=== PATIENT | male | born 1955 | race Caucasian/White ===

== ENCOUNTER 2018-09-28 09:53 | Inpatient (IN) | payer OTHER ==
--- NOTE | 2018-09-28 10:06 | ED ---
General Adult HPI <Pedro Pablo Lugo - Last Filed: 09/28/18 12:22> - General Source: patient, RN notes reviewed Mode of arrival: ambulatory <Mik Herbert - Last Filed: 09/28/18 20:19> - General Chief complaint: Abdominal Pain Stated complaint: abdominal pain Time Seen by Provider: 09/28/18 10:05 - History of Present Illness Initial comments: 63-year-old male with a past medical history of hypertension, COPD presents to the emergency department for a chief complaint of lower abdominal pain. Patient states that this pain started yesterday. States it is all in his right lower quadrant. Patient states he has been nauseous and vomited approximately 7 times since yesterday. States that he is not able to keep down food. He states he has not had a bowel movement for the past 2 days. Denies fevers or chills. Denies history of appendectomy. States he did have an open cholecystectomy 20 years ago but this was his only abdominal surgery. Denies dysuria.Patient has no other complaints at this time including shortness of breath, chest pain, headache, or visual changes. (Mik Herbert) - Related Data Home Medications Medication Instructions Recorded Confirmed Ibuprofen [Motrin Ib] 800 mg PO Q6H PRN 09/28/18 09/28/18 Levothyroxine Sodium [Synthroid] 75 mcg PO DAILY 09/28/18 09/28/18 Lisinopril [Zestril] 20 mg PO DAILY 09/28/18 09/28/18 Loratadine 10 mg PO DAILY 09/28/18 09/28/18 Terbinafine [LamISIL] 250 mg PO DAILY 09/28/18 09/28/18 Allergies Allergy/AdvReac Type Severity Reaction Status Date / Time Penicillins Allergy Anaphylaxis Verified 09/28/18 10:09 Review of Systems ROS Other: All systems not noted in ROS Statement are negative. <Pedro Pablo Lugo - Last Filed: 09/28/18 12:22> ROS Other: All systems not noted in ROS Statement are negative. <Mik Herbert - Last Filed: 09/28/18 20:19> ROS Statement: Those systems with pertinent positive or pertinent negative responses have been documented in the HPI. Past Medical History Past Medical History: COPD, Hypertension History of Any Multi-Drug Resistant Organisms: None Reported Past Surgical History: Cholecystectomy Past Psychological History: No Psychological Hx Reported Smoking Status: Former smoker Past Alcohol Use History: Rare Past Drug Use History: None Reported <Mik Herbert - Last Filed: 09/28/18 20:19> General Exam General appearance: alert, in no apparent distress Head exam: Present: atraumatic, normocephalic, normal inspection Eye exam: Present: normal appearance, PERRL, EOMI. Absent: scleral icterus, conjunctival injection, periorbital swelling ENT exam: Present: normal exam, mucous membranes moist Neck exam: Present: normal inspection, full ROM. Absent: tenderness, meningismus, lymphadenopathy Respiratory exam: Present: normal lung sounds bilaterally. Absent: respiratory distress, wheezes, rales, rhonchi, stridor Cardiovascular Exam: Present: regular rate, normal rhythm, normal heart sounds. Absent: systolic murmur, diastolic murmur, rubs, gallop, clicks GI/Abdominal exam: Present: soft, tenderness (Tenderness noted in the right lower quadrant and suprapubic area. There is significant tenderness in the left lower quadrant or upper abdomen. No guarding noted, no rebound tenderness.), normal bowel sounds. Absent: distended, guarding, rebound, rigid Neurological exam: Present: alert, oriented X3, CN II-XII intact Psychiatric exam: Present: normal affect, normal mood <Mik Herbert - Last Filed: 09/28/18 20:19> Course <Pedro Pablo Lugo - Last Filed: 09/28/18 12:22> Vital Signs 09/28/18 09/28/18 09/28/18 09:55 11:00 11:30 Temperature 98.2 F Pulse Rate 118 H Respiratory 22 Rate Blood Pressure 127/81 129/78 110/69 O2 Sat by Pulse 96 Oximetry 09/28/18 09/28/18 09/28/18 12:30 13:00 14:03 Temperature 99.1 F Pulse Rate 94 Respiratory 18 Rate Blood Pressure 109/69 113/74 119/70 O2 Sat by Pulse 95 Oximetry - Reevaluation(s) Reevaluation #1: 09/28/18 12:22 Patient does meet sepsis criteria diagnosed at 12:22 PM. Blood culture and lactic acid have been ordered. Fluid bolus and IV antibiotics will be ordered. (Pedro Pablo Lugo) Medical Decision Making - Lab Data Result diagrams: 09/28/18 10:30 09/28/18 10:30 <Pedro Pablo Lugo - Last Filed: 09/28/18 12:22> - Lab Data Result diagrams: 09/28/18 10:30 09/28/18 10:30 <Mik Herbert - Last Filed: 09/28/18 20:19> - Medical Decision Making Patient reexamined and reevaluated by myself, Dr. Lugo. I do agree with the findings. This includes diagnostic interpretation and treatment plan. Case was also discussed with Dr. Sidhu, who will admit covering for surgical call. He does request antibiotics and fluid bolus. (Pedro Pablo Lugo) 63-year-old male with a past medical history of hypertension, COPD presents to the emergency department for chief clamp lower abdominal pain 2 days. States this is of the right lower quadrant. Has vomited approximately 7 times .CBC does show a white count of 17.6 with a left shift with a lactic acid at 2.6, patient given 30 mL/kg of fluids. Patient also started on Flagyl and Levaquin as he is penicillin ALLERGIC and cannot have Unasyn or Zosyn. Urine does not show any significant evidence of infection. CT abdomen and pelvis did show an inflammatory change in the right lower quadrant with appendix distended and with a thickened wall. Likely at appendicolith, no evidence of bowel obstruction. Case was discussed with Dr. Sidhu by Dr. Lugo. Will admit for surgery tomorrow morning (Mik Herbert) - Lab Data Lab Results 09/28/18 09/28/18 09/28/18 Range/Units 10:30 10:30 10:30 WBC 17.6 H (3.8-10.6) k/uL RBC 4.70 (4.30-5.90) m/uL Hgb 14.3 (13.0-17.5) gm/dL Hct 41.7 (39.0-53.0) % MCV 88.7 (80.0-100.0) fL MCH 30.4 (25.0-35.0) pg MCHC 34.3 (31.0-37.0) g/dL RDW 13.5 (11.5-15.5) % Plt Count 250 (150-450) k/uL Neutrophils % 89 % Lymphocytes % 4 % Monocytes % 5 % Eosinophils % 1 % Basophils % 0 % Neutrophils # 15.6 H (1.3-7.7) k/uL Lymphocytes # 0.8 L (1.0-4.8) k/uL Monocytes # 0.9 (0-1.0) k/uL Eosinophils # 0.2 (0-0.7) k/uL Basophils # 0.0 (0-0.2) k/uL Sodium 137 (137-145) mmol/L Potassium 3.3 L (3.5-5.1) mmol/L Chloride 103 (98-107) mmol/L Carbon Dioxide 25 (22-30) mmol/L Anion Gap 9 mmol/L BUN 15 (9-20) mg/dL Creatinine 0.72 (0.66-1.25) mg/dL Est GFR (CKD-EPI)AfAm >90 (>60 ml/min/1.73 sqM) Est GFR (CKD-EPI)NonAf >90 (>60 ml/min/1.73 sqM) Glucose 152 H (74-99) mg/dL Lactic Ac Sepsis Rflx Plasma Lactic Acid Jules 2.6 H* (0.7-2.0) mmol/L Calcium 9.3 (8.4-10.2) mg/dL Total Bilirubin 1.3 (0.2-1.3) mg/dL AST 19 (17-59) U/L ALT 23 (21-72) U/L Alkaline Phosphatase 89 (38-126) U/L Total Protein 6.5 (6.3-8.2) g/dL Albumin 3.9 (3.5-5.0) g/dL Amylase 34 (30-110) U/L Lipase 70 (23-300) U/L / Range/Units 11:34 WBC (3.8-10.6) k/uL RBC (4.30-5.90) m/uL Hgb (13.0-17.5) gm/dL Hct (39.0-53.0) % MCV (80.0-100.0) fL MCH (25.0-35.0) pg MCHC (31.0-37.0) g/dL RDW (11.5-15.5) % Plt Count (150-450) k/uL Neutrophils % % Lymphocytes % % Monocytes % % Eosinophils % % Basophils % % Neutrophils # (1.3-7.7) k/uL Lymphocytes # (1.0-4.8) k/uL Monocytes # (0-1.0) k/uL Eosinophils # (0-0.7) k/uL Basophils # (0-0.2) k/uL Sodium (137-145) mmol/L Potassium (3.5-5.1) mmol/L Chloride (98-107) mmol/L Carbon Dioxide (22-30) mmol/L Anion Gap mmol/L BUN (9-20) mg/dL Creatinine (0.66-1.25) mg/dL Est GFR (CKD-EPI)AfAm (>60 ml/min/1.73 sqM) Est GFR (CKD-EPI)NonAf (>60 ml/min/1.73 sqM) Glucose (74-99) mg/dL Lactic Ac Sepsis Rflx Y Plasma Lactic Acid Jules (0.7-2.0) mmol/L Calcium (8.4-10.2) mg/dL Total Bilirubin (0.2-1.3) mg/dL AST (17-59) U/L ALT (21-72) U/L Alkaline Phosphatase (38-126) U/L Total Protein (6.3-8.2) g/dL Albumin (3.5-5.0) g/dL Amylase (30-110) U/L Lipase (23-300) U/L Disposition <Pedro Pablo Lugo - Last Filed: 09/28/18 12:22> Is patient prescribed a controlled substance at d/c from ED?: No Time of Disposition: 12:26 <Mik Herbert - Last Filed: 09/28/18 20:19> Clinical Impression: Acute appendicitis, Leukocytosis, Hypokalemia Disposition: ADMITTED IP TO THIS HOSP Condition: Fair
[2018-09-28] MEDS ORDERED: MORPHINE SULFATE 4 MG/ML SYRINGE IV STA (10:25)
[2018-09-28] MEDS ORDERED: SODIUM CHLORIDE 0.9% 1,000 ML IV STA ×2 (10:25→11:07)
[2018-09-28] MEDS ORDERED: ONDANSETRON 4 MG/2 ML VIAL IVP STA (10:25)
[2018-09-28 10:50] LABS: Basophils % (A) 0 %; Eosinophils # (A) 0.2 k/uL (0-0.7); Eosinophils % (A) 1 %; HCT 41.7 % (39.0-53.0); HGB 14.3 gm/dL (13.0-17.5); Lymphocytes # (A) 0.8 k/uL (1.0-4.8); Lymphocytes % (A) 4 %; MCH 30.4 pg (25.0-35.0); MCHC 34.3 g/dL (31.0-37.0); MCV 88.7 fL (80.0-100.0); Mean Platelet Volume 7.2; Monocytes # (A) 0.9 k/uL (0-1.0); Monocytes % (A) 5 %; Neutrophils # (A) 15.6 k/uL (1.3-7.7); Neutrophils % (A) 89 %; Platelet Count 250 k/uL (150-450); RDW 13.5 % (11.5-15.5); WBC 17.6 k/uL (3.8-10.6)
[2018-09-28 10:59] LABS: ALT 23 U/L (21-72); AST 19 U/L (17-59); Albumin 3.9 g/dL (3.5-5.0); Alkaline Phosphatase 89 U/L (38-126); Amylase 34 U/L (30-110); Anion Gap 9 mmol/L; Blood Urea Nitrogen 15 mg/dL (9-20); Calcium 9.3 mg/dL (8.4-10.2); Carbon Dioxide 25 mmol/L (22-30); Chloride 103 mmol/L (98-107); Glucose 152 mg/dL (74-99); Lipase 70 U/L (23-300); Potassium 3.3 mmol/L (3.5-5.1); Sodium 137 mmol/L (137-145); Total Bilirubin 1.3 mg/dL (0.2-1.3); Total Protein 6.5 g/dL (6.3-8.2)
[2018-09-28] MEDS ORDERED: SODIUM CHLORIDE 0.9% 500 ML 500 ML IV STA (11:36)
--- NOTE | 2018-09-28 11:57 | CT ---
EXAMINATION TYPE: CT abdomen pelvis w con DATE OF EXAM: 09/28/2018 COMPARISON: None HISTORY: RLQ pain CT DLP: 1519.4 mGycm Automated exposure control for dose reduction was used. TECHNIQUE: Helical acquisition of images from the lung bases through the pelvis have been completed. CONTRAST: Performed without Oral Contrast and with IV Contrast, patient injected with 100 mL of Isovue 300. FINDINGS: LUNG BASES: Basilar atelectatic changes are present, no pleural or pericardial effusion. AORTA: No significant abnormality is appreciated. LIVER/GB: The liver is enlarged and shows low attenuation compatible with hepatic steatosis, gallblad magnolia is absent. Within the left lobe of the liver there is a hypodense focus measuring 1 cm which stat istically is likely represent cyst. PANCREAS: No significant abnormality is seen. SPLEEN: No significant abnormality is seen. ADRENALS: No significant abnormality is seen. KIDNEYS: Low dense foci within the left kidney likely represent cysts largest of which measures appro ximately 2.3 cm. REPRODUCTIVE ORGANS: Prostate shows associated calcifications. BOWEL: There is inflammatory change in the right lower quadrant. The appendix is distended and shows a thickened wall. There is likely an appendicolith present the distal aspect of the appendix, focal h ypoattenuation. Fluid-filled loops of present of small and large bowel, no evident bowel obstruction. Inflammatory changes also present adjacent to the distal ileum, small amount of fluid present in the mesentery. Diverticular changes associated with the sigmoid colon. FREE AIR: No Free Air visible. ASCITES: None visible. PELVIC ADENOPATHY: None visualized. RETROPERITONEAL ADENOPATHY: No Retroperitoneal Adenopathy visible. URINARY BLADDER: No significant abnormality is seen. OSSEOUS STRUCTURES: No significant abnormality is seen. IMPRESSION: FINDINGS OF ACUTE APPENDICITIS DESCRIBED. Additional findings above.
[2018-09-28] MEDS ORDERED: metroNIDAZOLE-NS PMX 500 MG in SALINE 1 100ML.BAG IVPB STA (12:21)
[2018-09-28] MEDS ORDERED: LEVOFLOXACIN 750MG-D5W PMX 750 MG in DEXTROSE/WATER 1 150ML.BAG IVPB STA (12:22)
[2018-09-28] MEDS ORDERED: NALOXONE 0.4 MG/ML 1 ML VIAL IV PRN (12:24)
[2018-09-28] MEDS ORDERED: POTASSIUM CHLORIDE 10 MEQ in WATER FOR INJECTION 1 100ML.BAG IVPB STA (12:24)
[2018-09-28] MEDS: SODIUM CHLORIDE 0.9% 1,000 ML IV SCH ×2 (12:45→21:08)
[2018-09-28 13:13] LABS: Appearance,Urine Clear (Clear); Bilirubin,Urine Negative (Negative); Blood,Urine Negative (Negative); Color,Urine Yellow; Glucose,Urine (UA) Negative (Negative); Ketones,Urine Negative (Negative); Leukocyte Esterase,Urine Small (Negative); Mucus,Urine Rare /hpf; Nitrite,Urine Negative (Negative); Protein,Urine Trace (Negative); RBC,Urine 4 /hpf (0-5); Specific Gravity,Urine >1.050 (1.001-1.035); Squamous Epithelial Cell,Urine 2 /hpf (0-4); Urobilinogen,Urine <2.0 mg/dL (<2.0); WBC,Urine 11 /hpf (0-5)
--- NOTE | 2018-09-28 14:44 | P.GSHP ---
History of Present Illness H&P Date: 09/28/18 Chief Complaint: abdominal pain CHIEF COMPLAINT: Abdominal pain HISTORY OF PRESENT ILLNESS: 63-year-old male who presents to emergency room with a chief complaint of abdominal pain. Patient reports pain is localized to right lower quadrant. He reports episodes of nausea and vomiting yesterday. Decreased oral intake over last 24 hours. Denies diarrhea or constipation. WBC 17.6 on admission. Lactic acid 2.6. PAST MEDICAL HISTORY: See list. PAST SURGICAL HISTORY: See list. SOCIAL HISTORY: No illicit drug use. REVIEW OF SYSTEMS: CONSTITUTIONAL: Denies fever or chills. HEENT: Denies blurred vision, vision changes, or eye pain. Denies hemoptysis CARDIOVASCULAR: Denies chest pain or pressure. RESPIRATORY: No shortness of breath. GASTROINTESTINAL: Refer to [facility] for pertinent findings HEMATOLOGIC: Denies bleeding disorders. GENITOURINARY: Denies any blood in urine. SKIN: Denies pruitis. Denies rash. PHYSICAL EXAM: VITAL SIGNS: Reviewed. GENERAL: Well-developed in no acute distress. HEENT: No sclera icterus. Extraocular movements grossly intact. Moist buccal mucosa. Head is atraumatic, normocephalic. ABDOMEN: Soft. Nondistended. Tenderness to right lower quadrant upon palpation. NEUROLOGIC: Alert and oriented. Cranial nerves II through XII grossly intact. IMAGING: CT abdomen and pelvis: Inflammatory changes right lower quadrant. Appendix is distended and shows thickened wall. There is likely an appendicolith present the distal aspect of the appendix, focal hypoattenuation. Fluid-filled loops of small and large bowel. No evident bowel obstruction. Inflammatory changes also present adjacent to the distal ileum. small amount of fluid present in the mesentery. ASSESSMENT: 1. Abdominal pain 2. Acute appendicitis 3. Sepsis, present on admission, secondary to above PLAN: 1. Continue antibiotics. Monitor WBC 2. NPO 3. Patient to undergo laparoscopic appendectomy tomorrow with Dr. Sidhu Nurse practitioner note has been reviewed by physician. Signing provider agrees with the documented findings, assessment, and plan of care. Past Medical History Past Medical History: COPD, Hypertension History of Any Multi-Drug Resistant Organisms: None Reported Past Surgical History: Cholecystectomy Past Psychological History: No Psychological Hx Reported Smoking Status: Former smoker Past Alcohol Use History: Rare Past Drug Use History: None Reported Medications and Allergies Home Medications Medication Instructions Recorded Confirmed Type Ibuprofen [Motrin Ib] 800 mg PO Q6H PRN 09/28/18 09/28/18 History Levothyroxine Sodium [Synthroid] 75 mcg PO DAILY 09/28/18 09/28/18 History Lisinopril [Zestril] 20 mg PO DAILY 09/28/18 09/28/18 History Loratadine 10 mg PO DAILY 09/28/18 09/28/18 History Terbinafine [LamISIL] 250 mg PO DAILY 09/28/18 09/28/18 History Allergies Allergy/AdvReac Type Severity Reaction Status Date / Time Penicillins Allergy Anaphylaxis Verified 09/28/18 10:09 Surgical - Exam Vital Signs Temp Pulse Resp BP Pulse Ox 98.2 F 118 H 22 127/81 96 09/28/18 09:55 09/28/18 09:55 09/28/18 09:55 09/28/18 09:55 09/28/18 09:55 Results - Labs 09/28/18 10:30 09/28/18 10:30 Abnormal Lab Results - Last 24 Hours (Table) 09/28/18 09/28/18 09/28/18 Range/Units 10:30 10:30 10:30 WBC 17.6 H (3.8-10.6) k/uL Neutrophils # 15.6 H (1.3-7.7) k/uL Lymphocytes # 0.8 L (1.0-4.8) k/uL Potassium 3.3 L (3.5-5.1) mmol/L Glucose 152 H (74-99) mg/dL Plasma Lactic Acid Jules 2.6 H* (0.7-2.0) mmol/L Ur Specific [place] (1.001-1.035) Urine Protein (Negative) Ur Leukocyte Esterase (Negative) Urine WBC (0-5) /hpf Urine Mucus (None) /hpf 09/28/18 Range/Units 12:58 WBC (3.8-10.6) k/uL Neutrophils # (1.3-7.7) k/uL Lymphocytes # (1.0-4.8) k/uL Potassium (3.5-5.1) mmol/L Glucose (74-99) mg/dL Plasma Lactic Acid Jules (0.7-2.0) mmol/L Ur Specific [place] >1.050 H (1.001-1.035) Urine Protein Trace H (Negative) Ur Leukocyte Esterase Small H (Negative) Urine WBC 11 H (0-5) /hpf Urine Mucus Rare H (None) /hpf Diabetes panel 09/28/18 Range/Units 10:30 Sodium 137 (137-145) mmol/L Potassium 3.3 L (3.5-5.1) mmol/L Chloride 103 (98-107) mmol/L Carbon Dioxide 25 (22-30) mmol/L BUN 15 (9-20) mg/dL Creatinine 0.72 (0.66-1.25) mg/dL Glucose 152 H (74-99) mg/dL Calcium 9.3 (8.4-10.2) mg/dL AST 19 (17-59) U/L ALT 23 (21-72) U/L Alkaline Phosphatase 89 (38-126) U/L Total Protein 6.5 (6.3-8.2) g/dL Albumin 3.9 (3.5-5.0) g/dL Calcium panel 09/28/18 Range/Units 10:30 Calcium 9.3 (8.4-10.2) mg/dL Albumin 3.9 (3.5-5.0) g/dL Pituitary panel 09/28/18 Range/Units 10:30 Sodium 137 (137-145) mmol/L Potassium 3.3 L (3.5-5.1) mmol/L Chloride 103 (98-107) mmol/L Carbon Dioxide 25 (22-30) mmol/L BUN 15 (9-20) mg/dL Creatinine 0.72 (0.66-1.25) mg/dL Glucose 152 H (74-99) mg/dL Calcium 9.3 (8.4-10.2) mg/dL Adrenal panel 09/28/18 Range/Units 10:30 Sodium 137 (137-145) mmol/L Potassium 3.3 L (3.5-5.1) mmol/L Chloride 103 (98-107) mmol/L Carbon Dioxide 25 (22-30) mmol/L BUN 15 (9-20) mg/dL Creatinine 0.72 (0.66-1.25) mg/dL Glucose 152 H (74-99) mg/dL Calcium 9.3 (8.4-10.2) mg/dL Total Bilirubin 1.3 (0.2-1.3) mg/dL AST 19 (17-59) U/L ALT 23 (21-72) U/L Alkaline Phosphatase 89 (38-126) U/L Total Protein 6.5 (6.3-8.2) g/dL Albumin 3.9 (3.5-5.0) g/dL
[2018-09-28] MEDS: HYDROmorphone 1 MG/ML 1 ML SYRINGE IVP PRN (14:51)
[2018-09-28] MEDS ORDERED: fentaNYL (PF) 50 MCG/ML 2 ML AMP IV PRN (16:02)
[2018-09-28] MEDS ORDERED: MIDAZOLAM 2 MG/2 ML VIAL IV PRN (16:02)
[2018-09-28] MEDS ORDERED: DEXAMETHASONE SOD PHOSPHATE 10 MG/ML 1 ML VIAL IV ONE (16:02)
[2018-09-28] MEDS: HEPARIN SODIUM,PORCINE 5,000 UNIT/ML 1 ML VIAL SQ SCH (16:25)
[2018-09-28] MEDS: metroNIDAZOLE-NS PMX 500 MG in SALINE 1 100ML.BAG IVPB SCH (18:15)
[2018-09-28] MEDS ORDERED: SODIUM CHLORIDE 0.9% 1,000 ML IV ONE (21:28)
[2018-09-28] MEDS: ACETAMINOPHEN TAB 325 MG TAB PO PRN (21:40)
[2018-09-28] MEDS: LACTATED RINGERS 1,000 ML IV SCH (21:41)
[2018-09-29] MEDS: HEPARIN SODIUM,PORCINE 5,000 UNIT/ML 1 ML VIAL SQ SCH ×3 (00:07→16:37)
[2018-09-29] MEDS: ONDANSETRON 4 MG/2 ML VIAL IVP PRN ×2 (00:07→06:47)
[2018-09-29] MEDS: metroNIDAZOLE-NS PMX 500 MG in SALINE 1 100ML.BAG IVPB SCH ×4 (00:07→22:20)
[2018-09-29] MEDS: LACTATED RINGERS 1,000 ML IV SCH ×4 (00:08→16:38)
[2018-09-29] MEDS: HYDROmorphone 1 MG/ML 1 ML SYRINGE IVP PRN ×2 (00:17→04:57)
[2018-09-29] MEDS: SODIUM CHLORIDE 0.9% 1,000 ML IV SCH ×4 (03:59→22:19)
[2018-09-29] MEDS ORDERED: IV FLUID CONTINUATION 225 ML IV ONE (06:38)
[2018-09-29] MEDS ORDERED: SCOPOLAMINE 1.5MG/72HR PATCH TRANSDERM ONE (06:47)
[2018-09-29] MEDS ORDERED: ROCURONIUM BROMIDE 10 MG/ML 10 ML VIAL IV ONE (07:01)
[2018-09-29] MEDS ORDERED: NEOSTIGMINE 1 MG/ML 10 ML VIAL ONE (07:01)
[2018-09-29] MEDS ORDERED: GLYCOPYRROLATE 0.2 MG/ML 2 ML VIAL ONE (07:01)
[2018-09-29] MEDS ORDERED: SUCCINYLCHOLINE CHLORIDE 100 MG/5 ML SYR IV ONE (07:01)
[2018-09-29] MEDS ORDERED: PROPOFOL 10 MG/ML 20 ML VIAL IV ONE (07:01)
[2018-09-29] MEDS ORDERED: LIDOCAINE 1% INJ 10MG/ML (20 ML MDV) ONE (07:01)
[2018-09-29] MEDS: LEVOFLOXACIN 750MG-D5W PMX 750 MG in DEXTROSE/WATER 1 150ML.BAG IVPB SCH (07:09)
[2018-09-29] MEDS ORDERED: BUPIVACAIN-EPI 0.5%-1:200,000 30 ML VIAL SQ ONE ×2 (07:31)
[2018-09-29] MEDS ORDERED: LACTATED RINGERS 1,000 ML IV ONE (07:37)
--- NOTE | 2018-09-29 08:29 | P.OP ---
Date of Procedure: 09/29/18 Preoperative Diagnosis: Acute appendicitis Postoperative Diagnosis: Acute appendicitis with abscess Procedure(s) Performed: Laparoscopic appendectomy Anesthesia: NOBLE Surgeon: Delfino Sidhu Estimated Blood Loss (ml): 10 Pathology: other (Appendix) Condition: stable Disposition: PACU Description of Procedure: The patient's placed on the operating table in the supine position. The patient received general anesthesia. The abdomen was prepped and draped in the usual sterile fashion. The skin was anesthetized 1% local Xylocaine at the trocar sites. Using an 11 blade the skin was incised at the umbilicus. The umbilicus was grasped with a [place] clamp and then a Veress needle was placed into the peritoneal cavity. Position of the Veress needle was confirmed with positive drop test. After adequate insufflation a 5 mm trocar was placed into the peritoneal cavity. The abdomen was further insufflated. And then the laparoscope was placed in the peritoneal cavity. Next a 5 mm trocar was placed in the midline suprapubic position. And then a 10 mm trocar was placed in the midline left lateral position. The patient was rotated with the right side up and in Trendelenburg. The appendix was visualized. The appendix appeared to be inflamed. There was some patchy necrosis on the appendix. There appeared to be a periappendiceal abscess. The abscess cavity was aspirated. The appendix was grasped and then using the Harmonic scissors the mesoappendix was divided. A PDS Endoloop was then placed around the base of the appendix. And then the appendix was divided using Harmonic scissors. The appendix was placed into an Endo Catch and brought out through the 10 mm trocar site. The abdomen was irrigated. There is no bleeding seen. A SADAF drain is placed along the right colon next to the area of the abscess. The trochars withdrawn. The skin was closed interrupted 3-0 Monocryl suture. Dermabond dressing was applied. Patient was sent to recovery room in stable condition.
[2018-09-29] MEDS ORDERED: KETOROLAC 30 MG/ML 1 ML VIAL IVP ONE (08:42)
[2018-09-29] MEDS ORDERED: SODIUM CHLORIDE 0.9% 500 ML 500 ML IV ONE (09:38)
[2018-09-29] MEDS: LISINOPRIL 20 MG TAB PO SCH (10:18)
[2018-09-29] MEDS: PANTOPRAZOLE 40 MG/10 ML VIAL IVP SCH (10:18)
[2018-09-29] MEDS: LEVOTHYROXINE 75 MCG TAB PO SCH (10:18)
[2018-09-29] MEDS: METOCLOPRAMIDE 5 MG/ML 2 ML VIAL IVP PRN (10:27)
[2018-09-29 10:37] LABS: Basophils % (A) 0 %; Eosinophils # (A) 0.1 k/uL (0-0.7); Eosinophils % (A) 1 %; HCT 35.5 % (39.0-53.0); HGB 12.3 gm/dL (13.0-17.5); Lymphocytes # (A) 0.6 k/uL (1.0-4.8); Lymphocytes % (A) 4 %; MCH 31.7 pg (25.0-35.0); MCHC 34.7 g/dL (31.0-37.0); MCV 91.2 fL (80.0-100.0); Mean Platelet Volume 6.8; Monocytes # (A) 0.6 k/uL (0-1.0); Monocytes % (A) 5 %; Neutrophils # (A) 11.8 k/uL (1.3-7.7); Neutrophils % (A) 89 %; Platelet Count 180 k/uL (150-450); RBC 3.89 m/uL (4.30-5.90); RDW 13.1 % (11.5-15.5); WBC 13.2 k/uL (3.8-10.6)
[2018-09-29 10:45] LABS: Anion Gap 4 mmol/L; Blood Urea Nitrogen 13 mg/dL (9-20); Calcium 8.1 mg/dL (8.4-10.2); Carbon Dioxide 25 mmol/L (22-30); Chloride 108 mmol/L (98-107); Glucose 136 mg/dL (74-99); Sodium 137 mmol/L (137-145)
[2018-09-29] MEDS: ACETAMINOPHEN TAB 325 MG TAB PO PRN ×2 (14:17→22:39)
[2018-09-29] MEDS: MORPHINE SULFATE 2 MG/ML SYRINGE IVP PRN (22:31)
[2018-09-30] MEDS: HEPARIN SODIUM,PORCINE 5,000 UNIT/ML 1 ML VIAL SQ SCH ×4 (00:27→22:55)
[2018-09-30] MEDS: SODIUM CHLORIDE 0.9% 1,000 ML IV SCH ×4 (05:55→22:55)
[2018-09-30] MEDS: LEVOTHYROXINE 75 MCG TAB PO SCH (05:55)
--- NOTE | 2018-09-30 07:03 | CONS ---
CONSULTATION DATE OF SERVICE: 09/29/2018 REASON FOR CONSULTATION: Advice regarding COPD and hypertension requested by Dr. Sidhu. HISTORY OF PRESENT ILLNESS: This 63-year-old gentleman with a past medical history of COPD, hypertension, history of cholecystectomy being followed by Dr. Medina in the outpatient setting was complaining of abdominal pain. The patient came to [facility] and CT scan of the abdomen showed features of acute appendicitis and the patient underwent laparoscopic appendectomy for acute appendicitis and abscess by Dr. Sidhu. The patient was closely monitored at this time. The patient was on broad-spectrum IV antibiotics. There is no history of any fever, rigors. No history of headache, loss of consciousness, seizures. PAST MEDICAL HISTORY: History of COPD, hypertension, history of cholecystectomy, history of nicotine dependence. MEDICATIONS: Medications are: 1. Lamisil 250 mg p.o. daily. 2. Motrin 800 mg q.6 p.r.n. 3. Loratadine 10 mg p.o. daily. 4. Zestril 20 mg p.o. daily. 5. Synthroid 75 mcg p.o. daily. ALLERGIES: Allergies are PENICILLIN. FAMILY HISTORY: No history of heart disease or strokes in the family. SOCIAL HISTORY: Previous history of smoking. Occasional alcohol intake. REVIEW OF SYSTEMS: ENT: No diminished hearing or diminished vision. CARDIOVASCULAR SYSTEM: No angina or palpitations. RESPIRATORY SYSTEM: As mentioned earlier. GI: As mentioned earlier. : No dysuria. NERVOUS SYSTEM: No numbness or weakness. ALLERGY/IMMUNOLOGY: No history of asthma or hayfever. MUSCULOSKELETAL: As mentioned earlier. HEMATOLOGY/ONCOLOGY: No history of anemia. ENDOCRINE: Hypothyroidism. CONSTITUTIONAL: As mentioned earlier. DERMATOLOGY: Negative. RHEUMATOLOGY: Negative. PSYCHIATRY: As mentioned earlier. PHYSICAL EXAMINATION: The patient is alert and oriented x3. Pulse is 83, blood pressure 106/71, respirations 16, temperature 97.9, pulse ox 97% on room air. HEENT: Conjunctivae normal. Oral mucosa moist. NECK: No jugular venous distention. No carotid bruit. No lymph node enlargement. CARDIOVASCULAR: S1, S2 muffled. RESPIRATORY: Breath sounds diminished at the bases. No rhonchi, no crackles. ABDOMEN: Soft, status post laparoscopic appendectomy. present. LEGS: No edema, no swelling. NERVOUS SYSTEM: Higher function as mentioned. Moves all 4 limbs. No focal deficits. LYMPHATICS: No lymphadenopathy of the neck, axillae or groin. SKIN: No ulcer, rash or bleeding. JOINTS: No active deforming arthropathy. LABS: WBC 17.6. Sodium 137, potassium 3.3. Plasma lactic acid 2.6. UA noted. ASSESSMENT: 1. Acute appendicitis with periappendiceal abscess with sepsis, status post laparoscopic appendectomy. 2. Elevated lactic acid. 3. Hypokalemia. 4. Increased WBC. 5. Chronic obstructive pulmonary disease. 6. Hypertension. 7. History of cholecystectomy. 8. Remote history of nicotine dependence. 9. FULL CODE. RECOMMENDATIONS AND DISCUSSION: This 63-year-old gentleman who presented with multiple medical issues, at this time I would recommend to continue current medications, continue symptomatic treatment. Patient has allergy to PENICILLIN. I would recommend broad-spectrum IV antibiotics. Obtain cultures. Repeat labs. Otherwise, DVT prophylaxis. Resume the home medications. We will follow the patient closely with you and the patient may be asked to follow up with primary physician closely after discharge. Thank you Dr. Sidhu for letting us participate in the care of this patient. MMODL / IJN: [id number] / MTDD
[2018-09-30] MEDS: MORPHINE SULFATE 2 MG/ML SYRINGE IVP PRN ×2 (08:10→21:29)
[2018-09-30] MEDS: metroNIDAZOLE-NS PMX 500 MG in SALINE 1 100ML.BAG IVPB SCH ×3 (08:12→20:15)
[2018-09-30] MEDS: PANTOPRAZOLE 40 MG/10 ML VIAL IVP SCH (08:12)
[2018-09-30] MEDS: LISINOPRIL 20 MG TAB PO SCH (08:12)
[2018-09-30] MEDS: LEVOFLOXACIN 750MG-D5W PMX 750 MG in DEXTROSE/WATER 1 150ML.BAG IVPB SCH (11:59)
--- NOTE | 2018-09-30 12:17 | P.PN ---
Subjective Progress Note Date: 09/30/18 CHIEF COMPLAINT: Abdominal pain HISTORY OF PRESENT ILLNESS: 63-year-old male who underwent laparoscopic appendectomy secondary to acute appendicitis with abscess formation. POD #1. Patient seen and examined this morning the bedside. Patient reports abdominal p ain this morning. Patient also reports continued nausea. CBC from this morning is pending. Patient febrile overnight with a tmax of 101.8. Afebrile this morning. PHYSICAL EXAM: VITAL SIGNS: Reviewed. GENERAL: Well-developed in no acute distress. HEENT: No sclera icterus. Extraocular movements grossly intact. Moist buccal mucosa. Head is atraumatic, normocephalic. ABDOMEN: Soft. Nondistended. Appropriate surgical tenderness. SADAF drain to right lower quadrant with serosanguineous drainage. NEUROLOGIC: Alert and oriented. Cranial nerves II through XII grossly intact. ASSESSMENT: 1. Abdominal pain 2. Acute appendicitis 3. Sepsis, present on admission, secondary to above PLAN: 1. Continue antibiotics. Monitor WBC 2. Clear liquids as tolerated. Do not advance diet today due to nausea 3. Continue Zofran and Reglan PRN 4. Pain control. Continue IV narotics PRN. Nurse practitioner note has been reviewed by physician. Signing provider agrees with the documented findings, assessment, and plan of care. Objective - Vital Signs Vital signs: Vital Signs Temp 98.8 F 09/30/18 05:00 Pulse 89 09/30/18 05:00 Resp 20 09/30/18 08:00 BP 113/75 09/30/18 05:00 Pulse Ox 97 09/30/18 05:00 Intake & Output 09/29/18 09/30/18 09/30/18 18:59 06:59 18:59 Intake Total 1250 100 Output Total 365 70 65 Balance 885 30 -65 Intake: IV 850 Oral 400 100 Output: Drainage 55 70 65 Anterior Abdomen 55 70 65 Urine 300 Estimated Blood Loss 10 Other: # Voids 2 - Labs CBC & Chem 7: 09/29/18 10:14 09/29/18 10:14 Labs: Microbiology - Last 24 Hours (Table) 09/29/18 14:10 Urine Culture - Preliminary Urine,Clean Catch 09/28/18 12:24 Blood Culture - Preliminary Blood No Growth after 24 hours
[2018-09-30 13:06] LABS: Basophils % (A) 0 %; Eosinophils # (A) 0.1 k/uL (0-0.7); Eosinophils % (A) 1 %; HGB 11.7 gm/dL (13.0-17.5); Lymphocytes # (A) 0.9 k/uL (1.0-4.8); Lymphocytes % (A) 9 %; MCH 31.2 pg (25.0-35.0); MCHC 34.4 g/dL (31.0-37.0); MCV 90.6 fL (80.0-100.0); Mean Platelet Volume 7.3; Monocytes # (A) 0.5 k/uL (0-1.0); Monocytes % (A) 5 %; Neutrophils # (A) 8.8 k/uL (1.3-7.7); Neutrophils % (A) 85 %; Platelet Count 213 k/uL (150-450); RBC 3.75 m/uL (4.30-5.90); RDW 12.6 % (11.5-15.5); WBC 10.4 k/uL (3.8-10.6)
[2018-09-30] MEDS: ACETAMINOPHEN TAB 325 MG TAB PO PRN (14:45)
[2018-10-01] MEDS: ACETAMINOPHEN TAB 325 MG TAB PO PRN ×2 (00:05→16:29)
[2018-10-01] MEDS: LEVOTHYROXINE 75 MCG TAB PO SCH (05:14)
[2018-10-01] MEDS: SODIUM CHLORIDE 0.9% 1,000 ML IV SCH ×3 (05:15→21:42)
[2018-10-01] MEDS: MORPHINE SULFATE 2 MG/ML SYRINGE IVP PRN ×2 (07:39→22:55)
[2018-10-01] MEDS: metroNIDAZOLE-NS PMX 500 MG in SALINE 1 100ML.BAG IVPB SCH ×3 (07:41→21:42)
[2018-10-01] MEDS: HEPARIN SODIUM,PORCINE 5,000 UNIT/ML 1 ML VIAL SQ SCH ×2 (09:12→16:29)
[2018-10-01] MEDS: PANTOPRAZOLE 40 MG/10 ML VIAL IVP SCH (09:12)
[2018-10-01] MEDS: LISINOPRIL 20 MG TAB PO SCH (09:13)
--- NOTE | 2018-10-01 11:09 | P.PN ---
Progress Note - Text Progress Note Date: 10/01/18 Postoperative day 2 Patient is resting comfortably in his bed. He has some mild complaints of pain nausea. His abdomen is distended. He states he feels slightly better. On exam vital signs are stable. His abdomen is soft. Incision sites are clean dry tach. The abdomen is mildly distended. Status post laparoscopic appendectomy for acute purulent appendicitis. Patient remained on IV antibiotic. Patient has an ileus. He will remain on sips of clear liquids.
[2018-10-01 12:18] VITALS: BMI 31.1
[2018-10-01] MEDS: LEVOFLOXACIN 750MG-D5W PMX 750 MG in DEXTROSE/WATER 1 150ML.BAG IVPB SCH (12:45)
[2018-10-01] MEDS: ONDANSETRON 4 MG/2 ML VIAL IVP PRN (14:55)
--- NOTE | 2018-10-01 17:47 | P.PN ---
Subjective 63-year-old is admitted to surgical service status for acute purulent appendicitispost appendectomypretty he was septic initially on admission.he had ileus. He is on IV antibiotics. Hospitalist service consulted for medical management. On 10/01/2018 Patient still complaining of pain which is crampy. He had a bowel movement today. He still having fevers. Objective - Vital Signs Vital signs: Vital Signs Temp 100.5 F H 10/01/18 14:11 Pulse 88 10/01/18 14:11 Resp 16 10/01/18 16:00 BP 138/88 10/01/18 14:11 Pulse Ox 96 10/01/18 14:11 Intake & Output 09/30/18 10/01/18 10/01/18 18:59 06:59 18:59 Intake Total 400 Output Total 115 170 260 Balance -115 230 -260 Weight 104.326 kg Intake: Oral 400 Output: Drainage 115 170 260 Anterior Abdomen 115 170 260 Other: Voiding Method Urinal Urinal # Voids 4 1 - Exam On exam, alert and oriented x3. HEENT: Conjunctivae normal. eyes normal. NECK: No JVD. No thyroid enlargement. No LNs CARDIOVASCULAR: S1, S2 muffled. No murmur RESPIRATION: Breath sounds diminished in the bases. No rhonchi or crackles. No bronchial breathing. ABDOMEN: status post lumbar scopic appendectomy. Patient has bojorquez secondary to the above procedure LEGS: No edema. no swelling NERVOUS SYSTEM: Cranial N 2-12 grossly normal. Moves all 4 limbs. No focal deficits. No sensory deficit. No signs of cerebellar dysfucntion. - Labs CBC & Chem 7: 09/30/18 10:30 09/29/18 10:14 Labs: Microbiology - Last 24 Hours (Table) 09/28/18 12:24 Blood Culture - Preliminary Blood No Growth after 72 hours 09/29/18 14:10 Urine Culture - Final Urine,Clean Catch Assessment and Plan Assessment: - status post appendectomy for acute purulent appendicitis with periappendiceal abscess - Sepsis present on admission - COPD - Hypertension - History of nicotine dependence Plan - patient is on Levaquin and Flagyl. - Patient is still having fevers and is complaining of increased pain. I would recommend infectious disease consult for better antibiotic recommendations - Continue pain control as per surgery service - Continue advancement of fluid as per surgery service - We'll follow up on the patient Time with Patient: Greater than 30
[2018-10-02] MEDS: HEPARIN SODIUM,PORCINE 5,000 UNIT/ML 1 ML VIAL SQ SCH ×4 (00:11→23:41)
[2018-10-02] MEDS: SODIUM CHLORIDE 0.9% 1,000 ML IV SCH ×4 (04:31→23:41)
[2018-10-02] MEDS: LEVOTHYROXINE 75 MCG TAB PO SCH (06:19)
[2018-10-02 07:55] LABS: HCT 32.4 % (39.0-53.0); HGB 11.3 gm/dL (13.0-17.5); MCH 30.9 pg (25.0-35.0); MCHC 34.8 g/dL (31.0-37.0); MCV 88.7 fL (80.0-100.0); Mean Platelet Volume 6.7; Platelet Count 261 k/uL (150-450); RBC 3.65 m/uL (4.30-5.90); RDW 12.5 % (11.5-15.5); WBC 9.5 k/uL (3.8-10.6)
[2018-10-02 08:10] LABS: Anion Gap 4 mmol/L; Blood Urea Nitrogen 7 mg/dL (9-20); Calcium 8.1 mg/dL (8.4-10.2); Carbon Dioxide 30 mmol/L (22-30); Chloride 106 mmol/L (98-107); Glucose 106 mg/dL (74-99); Potassium 2.9 mmol/L (3.5-5.1); Sodium 140 mmol/L (137-145)
[2018-10-02] MEDS ORDERED: Potassium Replacement Protocol 1 EACH MISC MISCELLANE PRN (09:22)
[2018-10-02] MEDS: PANTOPRAZOLE 40 MG/10 ML VIAL IVP SCH (09:33)
[2018-10-02] MEDS: LISINOPRIL 20 MG TAB PO SCH (09:34)
[2018-10-02] MEDS: metroNIDAZOLE-NS PMX 500 MG in SALINE 1 100ML.BAG IVPB SCH ×3 (09:34→22:01)
[2018-10-02] MEDS: ONDANSETRON 4 MG/2 ML VIAL IVP PRN ×2 (09:34→17:46)
--- NOTE | 2018-10-02 11:26 | P.PN ---
Progress Note - Text Progress Note Date: 10/02/18 The patient feels better. He had several large bowel movements last night. On exam his vital signs are stable. His abdomen soft. Patient will have his diet advanced. It is for discharge home the next 24-48 hours.
[2018-10-02] MEDS: LEVOFLOXACIN 750MG-D5W PMX 750 MG in DEXTROSE/WATER 1 150ML.BAG IVPB SCH (11:38)
[2018-10-02] MEDS: POTASSIUM CHLORIDE ER 20 MEQ TAB.ER PO SCH ×3 (11:38→14:05)
[2018-10-02] MEDS: METOCLOPRAMIDE 5 MG/ML 2 ML VIAL IVP PRN (14:04)
--- NOTE | 2018-10-02 14:19 | P.PN ---
Subjective 63-year-old is admitted to surgical service status for acute purulent appendicitispost appendectomypretty he was septic initially on admission.he had ileus. He is on IV antibiotics. Hospitalist service consulted for medical management. On 10/01/2018 Patient still complaining of pain which is crampy. He had a bowel movement today. He still having fevers. 10/02/2018 said that is feeling better today is a little nauseous He had a large bowel movement last night and this morning She's tolerating feeding Objective - Vital Signs Vital signs: Vital Signs Temp 98.6 F 10/02/18 05:05 Pulse 83 10/02/18 05:05 Resp 16 10/02/18 05:05 BP 121/78 10/02/18 05:05 Pulse Ox 97 10/02/18 05:05 Intake & Output 10/01/18 10/02/18 10/02/18 18:59 06:59 18:59 Output Total 370 180 60 Balance -370 -180 -60 Weight 104.326 kg Output: Drainage 370 180 60 Anterior Abdomen 370 180 60 Other: Voiding Method Urinal Toilet # Voids 3 # Bowel Movements 2 - Exam On exam, alert and oriented x3. HEENT: Conjunctivae normal. eyes normal. NECK: No JVD. No thyroid enlargement. No LNs CARDIOVASCULAR: S1, S2 muffled. No murmur RESPIRATION: Breath sounds diminished in the bases. No rhonchi or crackles. No bronchial breathing. ABDOMEN: status post lumbar scopic appendectomy. Patient has bojorquez secondary to the above procedure LEGS: No edema. no swelling NERVOUS SYSTEM: Cranial N 2-12 grossly normal. Moves all 4 limbs. No focal deficits. No sensory deficit. No signs of cerebellar dysfucntion. - Labs CBC & Chem 7: 10/02/18 07:15 10/02/18 07:15 Labs: Abnormal Lab Results - Last 24 Hours (Table) 10/02/18 10/02/18 Range/Units 07:15 07:15 RBC 3.65 L (4.30-5.90) m/uL Hgb 11.3 L (13.0-17.5) gm/dL Hct 32.4 L (39.0-53.0) % Potassium 2.9 L (3.5-5.1) mmol/L BUN 7 L (9-20) mg/dL Creatinine 0.58 L (0.66-1.25) mg/dL Glucose 106 H (74-99) mg/dL Calcium 8.1 L (8.4-10.2) mg/dL Microbiology - Last 24 Hours (Table) 09/28/18 12:24 Blood Culture - Preliminary Blood No Growth after 72 hours Assessment and Plan Assessment: - status post appendectomy for acute purulent appendicitis with periappendiceal abscess - Sepsis present on admission - COPD - Hypertension - History of nicotine dependence Plan - patient is on Levaquin and Flagyl. - Patient is still having fevers and is complaining of increased pain. I would recommend infectious disease consult for better antibiotic recommendations - Continue pain control as per surgery service - Continue advancement of fluid as per surgery service - We'll follow up on the patient 10/02/2018 - Patient has no fevers - Continue antibiotics per primary service team - Patient has no active medical issues right now - Patient can be discharged when appropriate with the primary team Time with Patient: Less than 30
[2018-10-03] MEDS: SODIUM CHLORIDE 0.9% 1,000 ML IV SCH ×2 (05:59→13:39)
[2018-10-03] MEDS: LEVOTHYROXINE 75 MCG TAB PO SCH (05:59)
[2018-10-03] MEDS: LISINOPRIL 20 MG TAB PO SCH (08:59)
[2018-10-03] MEDS: metroNIDAZOLE-NS PMX 500 MG in SALINE 1 100ML.BAG IVPB SCH (08:59)
[2018-10-03] MEDS: PANTOPRAZOLE 40 MG/10 ML VIAL IVP SCH (08:59)
[2018-10-03] MEDS: HEPARIN SODIUM,PORCINE 5,000 UNIT/ML 1 ML VIAL SQ SCH (09:00)
--- NOTE | 2018-10-03 10:06 | P.DS ---
Providers Date of admission: 09/28/18 12:23 Expected date of discharge: 10/03/18 Attending physician: Delfino Sidhu Consults: 09/29/18 14:02 Consult Physician Routine Consulting Provider: Mckenzie Brown Consult Reason/Comments: med manage Do you want consulting provider notified?: Yes Primary care physician: Keaton Medina [facility] Course: This is a 63-year-old male who underwent laparoscopic appendectomy for acute appendicitis with abscess. Please see hospital chart for details. Procedures: Laparoscopic appendectomy Patient Condition at Discharge: Good Plan - Discharge Summary Discharge Rx Participant: No New Discharge Prescriptions: New Levofloxacin [Levaquin] 500 mg PO DAILY #7 tab No Action Terbinafine [LamISIL] 250 mg PO DAILY Loratadine 10 mg PO DAILY Lisinopril [Zestril] 20 mg PO DAILY Levothyroxine Sodium [Synthroid] 75 mcg PO DAILY Ibuprofen [Motrin Ib] 800 mg PO Q6H PRN PRN Reason: Pain Discharge Medication List Ibuprofen [Motrin Ib] 800 mg PO Q6H PRN 09/28/18 [History] Levothyroxine Sodium [Synthroid] 75 mcg PO DAILY 09/28/18 [History] Lisinopril [Zestril] 20 mg PO DAILY 09/28/18 [History] Loratadine 10 mg PO DAILY 09/28/18 [History] Terbinafine [LamISIL] 250 mg PO DAILY 09/28/18 [History] Levofloxacin [Levaquin] 500 mg PO DAILY #7 tab 10/03/18 [Rx] Follow up Appointment(s)/Referral(s): Keaton Medina III, MD [Primary Care Provider] - 1-2 days Delfino Sidhu MD [STAFF PHYSICIAN] - 1 Week
--- NOTE | 2018-10-03 12:08 | P.PN ---
Subjective 63-year-old is admitted to surgical service status for acute purulent appendicitispost appendectomypretty he was septic initially on admission.he had ileus. He is on IV antibiotics. Hospitalist service consulted for medical management. On 10/01/2018 Patient still complaining of pain which is crampy. He had a bowel movement today. He still having fevers. 10/02/2018 said that is feeling better today is a little nauseous He had a large bowel movement last night and this morning She's tolerating feeding 10/03/2018 Feeling better today Went for a walk Still having some pain but better than before Tolerating diet Objective - Vital Signs Vital signs: Vital Signs Temp 99.5 F 10/03/18 05:21 Pulse 77 10/03/18 05:21 Resp 14 10/03/18 05:21 BP 137/83 10/03/18 05:21 Pulse Ox 93 L 10/03/18 05:21 Intake & Output 10/02/18 10/03/18 10/03/18 18:59 06:59 18:59 Intake Total 750 1200 540 Output Total 120 50 70 Balance 630 1150 470 Intake: Intake, IV Titration 1200 Amount Sodium Chloride 0.9% 1, 1200 000 ml @ 150 mls/hr IV . Q6H40M [facility] Rx#:[id number] Oral 750 540 Output: Drainage 120 50 70 Anterior Abdomen 120 50 70 Other: Voiding Method Toilet # Voids 2 1 # Bowel Movements 2 - Exam On exam, alert and oriented x3. HEENT: Conjunctivae normal. eyes normal. NECK: No JVD. No thyroid enlargement. No LNs CARDIOVASCULAR: S1, S2 muffled. No murmur RESPIRATION: Breath sounds diminished in the bases. No rhonchi or crackles. No bronchial breathing. ABDOMEN: status post lumbar scopic appendectomy. Patient has bojorquez secondary to the above procedure LEGS: No edema. no swelling NERVOUS SYSTEM: Cranial N 2-12 grossly normal. Moves all 4 limbs. No focal deficits. No sensory deficit. No signs of cerebellar dysfucntion. - Labs CBC & Chem 7: 10/02/18 07:15 10/02/18 07:15 Labs: Microbiology - Last 24 Hours (Table) 09/28/18 12:24 Blood Culture - Preliminary Blood No Growth after 96 hours Assessment and Plan Assessment: - status post appendectomy for acute purulent appendicitis with periappendiceal abscess - Sepsis present on admission - COPD - Hypertension - History of nicotine dependence Plan - patient is on Levaquin and Flagyl. - Patient is still having fevers and is complaining of increased pain. I would recommend infectious disease consult for better antibiotic recommendations - Continue pain control as per surgery service - Continue advancement of fluid as per surgery service - We'll follow up on the patient 10/02/2018 - Patient has no fevers - Continue antibiotics per primary service team - Patient has no active medical issues right now - Patient can be discharged when appropriate with the primary team 10/03/2018 - Patient to be discharged as per primary team - We'll add Flagyl to his antibiotic regimen along with Levaquin - Continue rest of the medical care - Follow up with the primary care in 1 week - Follow with surgery on the date put in in the discharge summary Time with Patient: Less than 30
[2018-10-03] MEDS: LEVOFLOXACIN 750MG-D5W PMX 750 MG in DEXTROSE/WATER 1 150ML.BAG IVPB SCH (13:38)
[2018-10-03 14:21] VITALS: BP 139/84; PULSE 76; RESP 16; TEMP 98
== END 2018-10-03 14:30 | disposition home or self-care (01) | DRG 853 ==
LOC: EC 09:53 → 4MS4W 12:23 → OBSVTOIN 12:23 → 4MS4W 13:47
PROVIDERS: ADMIT Surgery; ATTEND Surgery
PROC: 0DTJ4ZZ Resection of Appendix, Percutaneous Endoscopic Approach (ICD-10-PCS; principal; 2018-09-29 07:30)
DX: A41.9 Sepsis, unspecified organism (principal); K35.33 Acute appendicitis with perforation, localized peritonitis, and gangrene, with abscess; K56.7 Ileus, unspecified; E87.6 Hypokalemia; I10 Essential (primary) hypertension; J44.9 Chronic obstructive pulmonary disease, unspecified; Z79.890 Hormone replacement therapy; Z79.899 Other long term (current) drug therapy; Z87.891 Personal history of nicotine dependence; Z88.0 Allergy status to penicillin; Z90.49 Acquired absence of other specified parts of digestive tract; Z79.1 Long term (current) use of non-steroidal anti-inflammatories (NSAID); E03.9 Hypothyroidism, unspecified
CPT/HCPCS: 36415; 74177; 80048; 80053; 81001; 82150; 83605; 83690; 85025; 85027; 87040; 87086; 88304; 96361; 96365; 96368; 96375; 99285

== ENCOUNTER → 2019-04-15 | Outpatient (CLI) | payer OTHER ==
--- NOTE | 2019-04-15 17:56 | XR ---
EXAMINATION TYPE: XR chest 2V DATE OF EXAM: 04/15/2019 COMPARISON: 09/18/2016 TECHNIQUE: PA and lateral views submitted. HISTORY: Cough FINDINGS: The lungs are clear and there is no pneumothorax, pleural effusion, or focal pneumonia. No overt fa ilure. Heart size stable. IMPRESSION: 1. No acute process.
== END | disposition home or self-care (01) ==
LOC: RADXRMAIN 16:18
PROVIDERS: ATTEND Family Medicine
DX: R05 Cough (principal); R06.2 Wheezing
CPT/HCPCS: 71046

== ENCOUNTER → 2019-04-15 | Outpatient (CLI) | payer OTHER ==
[2019-04-15 15:15] LABS: Basophils % (A) 0 %; Eosinophils # (A) 0.5 k/uL (0-0.7); Eosinophils % (A) 6 %; HCT 42.5 % (39.0-53.0); HGB 14.5 gm/dL (13.0-17.5); Lymphocytes % (A) 25 %; MCH 31.1 pg (25.0-35.0); MCHC 34.1 g/dL (31.0-37.0); MCV 91.2 fL (80.0-100.0); Mean Platelet Volume 6.6; Monocytes # (A) 0.4 k/uL (0-1.0); Monocytes % (A) 5 %; Neutrophils # (A) 4.8 k/uL (1.3-7.7); Neutrophils % (A) 62 %; Platelet Count 286 k/uL (150-450); RBC 4.66 m/uL (4.30-5.90); RDW 12.4 % (11.5-15.5); WBC 7.8 k/uL (3.8-10.6)
[2019-04-15 18:32] LABS: ALT 38 U/L (10-49); AST 24 U/L (14-35); Albumin/Globulin Ratio 2.44 (1.60-3.17); Alkaline Phosphatase 105 U/L (41-126); BUN/Creat Ratio 21.25 Ratio (12.00-20.00); C Reactive Protein <0.4 mg/dL (0.0-0.8); Calcium 9.5 mg/dL (8.7-10.3); Carbon Dioxide 30.1 mmol/L (21.6-31.8); Chloride 104 mmol/L (96-109); Creatine Kinase 118 U/L (35-257); Globulin 1.8 g/dL (1.6-3.3); Glucose 116 mg/dL (70-110); Non-African American GFR(CKD) 95.7 (60.0-200.0); Potassium 4.1 mmol/L (3.5-5.5); Sodium 141 mmol/L (135-145); Total Bilirubin 0.4 mg/dL (0.3-1.2); Total Protein 6.2 g/dL (6.2-8.2)
[2019-04-15 19:24] LABS: Erythrocyte Sedimentation Rate 3 mm/hr (0-15)
== END | disposition home or self-care (01) ==
LOC: LABWHC1 14:25
PROVIDERS: ATTEND Family Medicine
DX: M79.18 Myalgia, other site (principal); E89.0 Postprocedural hypothyroidism
CPT/HCPCS: 36415; 80053; 82550; 84439; 84443; 85025; 85652; 86140

== ENCOUNTER → 2019-05-02 | Outpatient (CLI) | payer OTHER ==
--- NOTE | 2019-05-02 10:35 | CT ---
EXAMINATION TYPE: CT soft tissue neck wo/w con DATE OF EXAM: 05/02/2019 COMPARISON: None HISTORY: Right sided neck swelling CT DLP: 1166.5 mGycm CONTRAST: CT scan of the neck is performed without and with IV Contrast, patient injected with 100 mL of Isovue 300. Contrast enhanced CT of the neck was performed from the skull base through the lung apices. AIRWAY: The supraglottic, glottic, and subglottic portions of the airway appear patent and free of mass. SALIVARY GLANDS: The submandibular and parotid glands are free of mass or inflammatory process. THYROID GLAND: Predominantly cystic left thyroid nodule measuring 4.9 x 3.5 x 3.9 cm. No additional m asses seen of the thyroid gland. Peripheral calcifications noted. Consider ultrasound correlation. LYMPH NODES: No adenopathy seen greater than 1cm. LUNG APICES: No nodule or mass is seen. OTHER: Vascular structures are patent. No significant degenerative change of the cervical spine. N o abscess seen. IMPRESSION: Anomaly cystic left thyroid nodule as noted above. Otherwise unremarkable study.
== END | disposition home or self-care (01) ==
LOC: RADCTMAIN 07:10
PROVIDERS: ATTEND Family Medicine
DX: E04.1 Nontoxic single thyroid nodule (principal)
CPT/HCPCS: 70492; Q9967

== ENCOUNTER 2019-07-22 09:27 | Day surgery (SDC) | payer OTHER ==
[2019-07-22 10:11] VITALS: RESP 14; TEMP 98.1
--- NOTE | 2019-07-22 11:18 | US ---
ULTRASOUND GUIDED FNA THYROID BIOPSY: CLINICAL HISTORY: Request for right and left thyroid FNA FINDINGS: The procedure was explained to the patient. The risks, complications, benefits and alternatives were discussed and any questions were answered. Informed consent was obtained. Patient was placed supin e on the ultrasound table and prepped and draped in the usual sterile fashion. Utilizing a 25 gauge needle, five passes were made into the the 2 requested nodules. Patient was stable throughout the procedure. Pathology is pending. All elements of maximal barrier technique were utilized. IMPRESSION: 1. Successful ultrasound guided FNA thyroid biopsy.
[2019-07-22 11:34] VITALS: BP 141/88; PULSE 76
== END 2019-07-22 11:22 | disposition home or self-care (01) ==
LOC: RADPROMAIN 09:27
PROVIDERS: ATTEND Otolaryngology Plastic Surgery within the Head & Neck
DX: D34 Benign neoplasm of thyroid gland (principal)
CPT/HCPCS: 10005; 88173; 88305

== ENCOUNTER → 2022-01-03 | Outpatient (CLI) | payer OTHER ==
--- NOTE | 2022-01-04 04:13 | MR ---
EXAMINATION TYPE: MR lumbar spine wo con DATE OF EXAM: 01/03/2022 COMPARISON: None HISTORY: Low back pain Multiplanar multiecho imaging of the lumbar spine with no contrast. The lumbar vertebrae have normal alignment. There is disc space narrowing throughout the lumbar spine and more at L4-5 and L5-S1. There is posterior small disc herniations from L1 to L4. Lumbar nerve ro ots appear intact. No evidence of any significant spinal stenosis. There is some lateral recess steno sis due to facet arthropathy at L2-3 and L3-4. No significant neural foraminal narrowing. The posteri or elements are intact. No lumbar paraspinal mass. Sacroiliac joints are intact. There is mild increa sed signal on the STIR images on both sides of the L3-4 disc. No evidence of any increased disc fluid . IMPRESSION: Multilevel lumbar spondylotic changes and multiple small posterior disc herniations from L1 to L4. No fracture. No significant spinal stenosis. There are some reactive signal changes on both sides of th e L3-4 disc that could be stress related phenomenon and edema.
== END | disposition home or self-care (01) ==
LOC: RADMRIMAIN 21:15
PROVIDERS: ATTEND Family Medicine
DX: M51.16 Intervertebral disc disorders with radiculopathy, lumbar region (principal); M47.26 Other spondylosis with radiculopathy, lumbar region
CPT/HCPCS: 72148

== ENCOUNTER → 2022-05-02 | Outpatient (CLI) | payer MEDICARE ==
--- NOTE | 2022-05-02 08:49 | CT ---
EXAMINATION TYPE: CT sinus wo con DATE OF EXAM: 05/02/2022 COMPARISON: None HISTORY: Chronic sinusitis and facial pain. CT DLP: 648.[address] of the paranasal sinuses was performed in the axial and coronal planes. Bone and soft tissue settings are submitted. The paranasal sinuses demonstrate normal aeration and development. Moderate circumferential mucosal thickening of the bilateral maxillary sinuses with bilateral ostiome atal unit obstruction. There is some moderate opacification of the ethmoid air cells and mild to mode rate opacification of the frontal sinus. Mild mucosal thickening left sphenoid sinus. The nasal septu m is midline. No bony destructive changes are seen within the field of view. IMPRESSION: Chronic pansinusitis.
== END | disposition home or self-care (01) ==
LOC: RADCTMAIN 08:18
PROVIDERS: ATTEND Otolaryngology
DX: J32.4 Chronic pansinusitis (principal)
CPT/HCPCS: 70486

== ENCOUNTER → 2023-02-12 | Outpatient (CLI) | payer MEDICARE ==
--- NOTE | 2023-02-13 08:46 | US ---
EXAMINATION TYPE: US thyroid st tissue head/neck DATE OF EXAM: 02/12/2023 COMPARISON: NONE CLINICAL INDICATION: Male, 68 years old with history of E05.90 THYROTOXICOSIS, UNSP WITHOUT THYROTOXI C CRI; thy nodule GLAND SIZE: Right Lobe: 4.0 x 1.6 x 2.5 cm Overall Parenchyma: homogenous Left Lobe: 5.3 x 3.0 x 2.1 cm Overall Parenchyma: heterogenous Isthmus Thickness: .2 cm NODULES RIGHT: # of nodules measured on right: 1 1. 2.4 X 1.5 x 1.9 cm, mid , solid or almost completely solid, hypoechoic nodule, which is wider t leary tall, with smooth margins, without echogenic foci. Prior size: No previous us. TR4 Moderately Suspicious: FNA if ? 1.5 cm; Follow if ? 1 cm at 1, 2, 3, and 5 y LEFT: # of nodules measured on left: 1 1. 3.8 X 1.9 x 2.4 cm, mid , solid or almost completely solid, hypoechoic nodule, which is wider th an tall, with smooth margins, with echogenic foci. Prior size: No previous us. TR4 Moderately Suspicious: FNA if ? 1.5 cm; Follow if ? 1 cm at 1, 2, 3, and 5 y ISTHMUS: # of nodules measured in the isthmus: 0 Bilateral neck scanned, no evidence of lymphadenopathy. IMPRESSION: TR4 nodules bilaterally for which tissue diagnosis is recommended.
== END | disposition home or self-care (01) ==
LOC: RADUSWWP 16:52
PROVIDERS: ATTEND Internal Medicine Endocrinology, Diabetes & Metabolism
DX: E05.90 Thyrotoxicosis, unspecified without thyrotoxic crisis or storm (principal); E04.2 Nontoxic multinodular goiter
CPT/HCPCS: 76536

== ENCOUNTER → 2023-02-17 | Outpatient (CLI) | payer MEDICARE ==
[2023-02-17 15:11] LABS: Basophils # (A) 0.05 X 10*3/uL (0.00-0.10); Basophils % (A) 0.8 %; Eosinophils # (A) 0.42 X 10*3/uL (0.04-0.35); Eosinophils % (A) 6.4 %; HCT 43.4 % (39.6-50.0); HGB 15.4 d/dL (13.0-17.0); Lymphocytes # (A) 1.66 X 10*3/uL (0.90-5.00); Lymphocytes % (A) 25.2 %; MCH 31.8 pg (27.0-32.0); MCHC 35.5 d/dL (32.0-37.0); MCV 89.5 FL (80.0-97.0); Mean Platelet Volume 10.1 FL (9.5-12.2); Monocytes # (A) 0.48 X 10*3/uL (0.20-1.00); Monocytes % (A) 7.3 %; NRBC Per 100 WBC 0 X 10*3/uL (0.00-0.01); Neutrophils # (A) 3.95 X 10*3/uL (1.80-7.70); Platelet Count 252 X 10*3/uL (140-440); RBC 4.85 X 10*6/uL (4.40-5.60); RDW 12.2 % (11.5-14.5); WBC 6.58 X 10*3/uL (4.50-10.00)
[2023-02-17 16:06] LABS: Chol/HDL Ratio 3.81 Ratio; LDL Cholesterol,Calculated 92.8 mg/dL (0.0-131.0); VLDL Calculation 17.84 mg/dL (5.00-40.00)
[2023-02-17 16:07] LABS: ALT 50 U/L (10-49); AST 26 U/L (14-35); Albumin 4.5 d/dL (3.8-4.9); Albumin/Globulin Ratio 2.25 Ratio (1.60-3.17); Alkaline Phosphatase 108 U/L (41-126); BUN/Creat Ratio 16.18 Ratio (12.00-20.00); Blood Urea Nitrogen 17.8 mg/dL (9.0-27.0); Calcium 9.5 mg/dL (8.7-10.3); Carbon Dioxide 27.2 mmol/L (21.6-31.8); Chloride 105 mmol/L (96-109); Glucose 121 mg/dL (70-110); Potassium 4.7 mmol/L (3.5-5.5); Sodium 143 mmol/L (135-145); T4, Free (Free Thyroxine) 1.24 ng/dL (0.80-1.80); Total Bilirubin 0.6 mg/dL (0.3-1.2); Total Protein 6.5 d/dL (6.2-8.2)
[2023-02-17 16:13] LABS: PSA Annual Screen 0.736 ng/mL (0.000-4.000)
== END | disposition home or self-care (01) ==
LOC: LABWHC1 10:07
PROVIDERS: ATTEND Student in an Organized Health Care Education/Training Program
DX: Z12.5 Encounter for screening for malignant neoplasm of prostate (principal); E05.90 Thyrotoxicosis, unspecified without thyrotoxic crisis or storm; Z79.899 Other long term (current) drug therapy
CPT/HCPCS: 84439; 84481; 80061; 80053; 84443; 85025; 82306; 83036; 36415; G0103

== ENCOUNTER 2023-03-25 12:51 | Day surgery (SDC) | payer MEDICARE ==
[2023-03-25 13:48] VITALS: RESP 18; TEMP 98.1
--- NOTE | 2023-03-25 14:40 | US ---
ULTRASOUND GUIDED FNA THYROID BIOPSY: CLINICAL HISTORY: Request for a large right and large left thyroid FNA FINDINGS: The procedure was explained to the patient. The risks, complications, benefits and alternatives were discussed and any questions were answered. Informed consent was obtained. Patient was placed supin e on the ultrasound table and prepped and draped in the usual sterile fashion. Utilizing a 25 gauge needle, five passes were made into the requested right and requested a left thyroid nodule. Patient was stable throughout the procedure. Pathology is pending. All elements of maximal barrier technique were utilized. IMPRESSION: 1. Successful ultrasound guided FNA thyroid biopsy.
[2023-03-25 14:43] VITALS: BP 139/90; PULSE 98
== END 2023-03-25 14:31 | disposition home or self-care (01) ==
LOC: RADPROMAIN 12:51
PROVIDERS: ATTEND Internal Medicine Endocrinology, Diabetes & Metabolism
DX: E04.2 Nontoxic multinodular goiter (principal)
CPT/HCPCS: 10005; 10006; 88173; 88305

== ENCOUNTER → 2023-04-03 | Outpatient (CLI) | payer MEDICARE ==
[2023-04-03 16:30] LABS: ALT 52 U/L (10-49); AST 28 U/L (14-35); Albumin 4.3 g/dL (3.8-4.9); Albumin/Globulin Ratio 2.26 Ratio (1.60-3.17); Alkaline Phosphatase 86 U/L (41-126); BUN/Creat Ratio 20.33 Ratio (12.00-20.00); Blood Urea Nitrogen 18.3 mg/dL (9.0-27.0); Calcium 9.4 mg/dL (8.7-10.3); Carbon Dioxide 25.9 mmol/L (21.6-31.8); Chloride 106 mmol/L (96-109); Chol/HDL Ratio 2.58 Ratio; Globulin 1.9 g/dL (1.6-3.3); Glucose 100 mg/dL (70-110); LDL Cholesterol,Calculated 61.7 mg/dL (0.0-131.0); Potassium 4.2 mmol/L (3.5-5.5); Sodium 142 mmol/L (135-145); T4, Free (Free Thyroxine) 1.44 ng/dL (0.80-1.80); Total Bilirubin 1.1 mg/dL (0.3-1.2); Total Protein 6.2 g/dL (6.2-8.2); VLDL Calculation 13.62 mg/dL (5.00-40.00)
== END | disposition home or self-care (01) ==
LOC: LABWHC1 11:20
PROVIDERS: ATTEND Internal Medicine Endocrinology, Diabetes & Metabolism
DX: E11.9 Type 2 diabetes mellitus without complications (principal); E04.2 Nontoxic multinodular goiter
CPT/HCPCS: 36415; 80053; 80061; 82043; 82570; 83036; 84439; 84443

== ENCOUNTER → 2023-05-26 | Outpatient (CLI) | payer MEDICARE ==
--- NOTE | 2023-05-26 08:42 | US ---
EXAMINATION TYPE: US duplex aorta DATE OF EXAM: 05/26/2023 COMPARISON: CT 09/28/2018 CLINICAL INDICATION: Male, 68 years old with history of Z13.6; Former smoker x 14 years; HTN TECHNIQUE: Multiple sonographic images of the abdominal aorta are obtained. FINDINGS: EXAM MEASUREMENTS: Abdominal Aorta: Proximal: 3.3 x 2.7 cm Mid: 2.4 x 2.4 cm Distal: 2.0 x 2.4 cm Bifurcation: Right Illiac: 1.4 x 1.5 cm Left Illiac: 1.3 x 1.3 cm [employer] NOTES: Unremarkable exam IMPRESSION: Proximal abdominal aorta smooth dilation up to 3.3 cm felt to be patient's normal anatomy.
--- NOTE | 2023-05-26 09:18 | CTL ---
EXAMINATION TYPE: CT Low Dose Lung DATE OF EXAM ORDERED: 05/26/2023 HISTORY: 68-year-old male Z12.2, Z87.891 PERSONAL HISTORY OF NICOTINE ,Z13.6. 40 pack-year history, q uit 14 years ago. Lung cancer screening CT DLP: 149.[address] CTDI: 3.8 mGy Automated exposure control for dose reduction was used. SCREENING VISIT: Baseline COMPARISON: None TECHNIQUE: Low dose computed tomography scan was performed through the chest which the coronal and sa gittal reconstructions. CT DIAGNOSTIC QUALITY: Satisfactory FINDINGS: Heart is normal size without pericardial effusion. Conventional arch also branching anatomy. Mild aneurysm lower descending thoracic aorta up to 3.1 cm. No thoracic lymphadenopathy by CT size criteria. Some strandy atelectasis or scar at the right base. [id number] upper lung predominant emphysema tous change. Minimal biapical pleural parenchymal scarring. Calcified granuloma medial right apex axial image 6. 4 mm posterior right upper lung pulmonary nodule, axial image 129. Calcified granuloma periphery of the left lower lobe, axial image 211. 5 mm lateral left upper lobe pulmonary nodule, axial image 95. 3 mm left apical pulmonary nodule, axial image 40. Visualized upper abdomen shows cholecystectomy clips. Bones: No osseous destructive process. IMPRESSION: 1. Lungs RADS Category 2 (benign appearance or behavior, <1% chance of malignancy); a few scattered p ulmonary nodules including calcified granulomas. Largest noncalcified nodule measuring up to 5 mm on baseline screening. 2. COPD with mild emphysema. 3. Mild aneurysm lower descending thoracic aorta up to 3.[address] LUNG RAD AND CT CHEST RECOMMENDATION: Lung-Rad 2 Benign Appearance or Behavior: Continue annual sc reening with LDCT in 12 months. S Modifier (other clinically significant findings): None
== END | disposition home or self-care (01) ==
LOC: RADUSWWP 07:04
PROVIDERS: ATTEND Student in an Organized Health Care Education/Training Program
DX: Z12.2 Encounter for screening for malignant neoplasm of respiratory organs (principal); Z13.6 Encounter for screening for cardiovascular disorders; J44.9 Chronic obstructive pulmonary disease, unspecified; J43.9 Emphysema, unspecified; I71.23 Aneurysm of the descending thoracic aorta, without rupture; R91.8 Other nonspecific abnormal finding of lung field; Z87.891 Personal history of nicotine dependence; I10 Essential (primary) hypertension
CPT/HCPCS: 71271; 76706

== ENCOUNTER → 2024-06-08 | Outpatient (CLI) | payer MEDICARE ==
--- NOTE | 2024-06-09 13:47 | MR ---
EXAMINATION TYPE: MR shoulder RT wo con DATE OF EXAM: 06/08/2024 8:12 PM COMPARISON: None. CLINICAL INDICATION: Male, 69 years old with history of M67.813, Right shoulder pain x9 months, No kn own injury, Difficult to raise arm IV Contrast: cc (None if empty) TECHNIQUE: Multiplanar, multisequence imaging of the right shoulder is performed without contrast. FINDINGS: There is moderate osteoarthritis of the AC joint. There is a small subacromial spur. There is a small cyst in the acromium. There is mild osteoarthritic change of the glenohumeral joint. There are multiple subchondral cysts in the lateral humeral head. There is a large intrasubstance tear of the supraspinatus which extends to the humeral attachment. Th ere is no retraction of the musculotendinous junction. The infraspinatus and subscapularis tendons ar e intact. There is no subacromial or subdeltoid bursitis. The biceps tendon is normal in signal intensity and position within the bicipital groove and the lauren ps anchor is intact. No definite labral injury. IMPRESSION: 1. Rotator cuff tear involving the supraspinatus without retraction as described above 2. Moderate osteoarthritic changes of the AC joint and mild osteoarthritic change of the glenohumeral joint. [facility], , 06/09/2024 1:45 PM
== END | disposition home or self-care (01) ==
LOC: RADMRIMAIN 19:26
PROVIDERS: ATTEND Internal Medicine Rheumatology
DX: M19.011 Primary osteoarthritis, right shoulder (principal); M67.813 Other specified disorders of tendon, right shoulder; M75.101 Unspecified rotator cuff tear or rupture of right shoulder, not specified as traumatic